=== PATIENT | male | born 1935 | race Caucasian/White ===

== ENCOUNTER → 2023-03-18 10:22 | Outpatient (CLI) | payer MEDICARE, OTHER, SELFPAY | PROVIDERS: Visit Provider Nurse Practitioner Family | DX: T14.8XXA Other injury of unspecified body region, initial encounter (principal) | CPT/HCPCS: 87070; 87205 ==

== ENCOUNTER → 2023-08-10 12:12 | Outpatient (CLI) | payer MEDICARE, OTHER, SELFPAY ==
--- NOTE | 2023-08-10 | DI.MRI.S_ITS ---
PROCEDURE: MR LUMBAR SPINE WO CON INDICATIONS: LUMBAR RADICULOPATHY TECHNIQUE: Noncontrast sagittal T1 spin echo and T2 fast echo, sagittal STIR, and T2 fast spin echo through the lumbar spine. In cases with scoliosis, additional coronal T2 fast spin echo may be performed. COMPARISON: None. FINDINGS: Image quality: Excellent. Alignment and Curvature: Mild anterolisthesis of L4 on L5. Bone Marrow: Marrow is of normal overall signal. No acute vertebral body compression fractures. Spinal Cord: Conus medullaris terminates at the L1-L2 level. Visualized cord demonstrates normal signal and size. Paraspinous Soft Tissues: No paravertebral masses. Simple appearing bilateral renal cysts. T12-L1: Normal appearance. L1-L2: Disc desiccation and small right paracentral disc protrusion. No central canal or neural foraminal stenosis. L2-L3: Disc desiccation and minimal disc bulge. Facet arthropathy and thickening of ligamentum flavum. No significant central canal stenosis. Moderate left and mild right neural foraminal stenosis. L3-L4: Disc desiccation and mild diffuse disc bulge. Facet arthropathy and thickening of ligamentum flavum. Mild central canal stenosis. Severe bilateral neural foraminal stenosis. L4-L5: Disc desiccation and mild diffuse disc bulge. Facet arthropathy and thickening of ligamentum flavum. Mild central canal stenosis. Severe right and moderate to severe left neural foraminal stenosis. L5-S1: Disc desiccation. Mild diffuse disc bulge. Facet arthropathy. No central canal stenosis. Mild bilateral neural foraminal stenosis. IMPRESSION: 1. Multilevel degenerative changes of the lumbar spine as described above. 2. There is mild central canal stenosis at L3-L4 and L4-5. 3. Severe neural foraminal stenosis bilaterally at L3-L4 and on the right at L4-5. Moderate to severe left neural foraminal stenosis at L4-5. Dictated by: Db Dewey M.D. on 08/10/2023 at 14:50 Approved by: Db Dewey M.D. on 08/10/2023 at 14:55
== END ==
PROVIDERS: PCP Internal Medicine; Referring Provider Internal Medicine; Visit Provider Internal Medicine
DX: M47.26 Other spondylosis with radiculopathy, lumbar region (principal); M47.27 Other spondylosis with radiculopathy, lumbosacral region; M48.061 Spinal stenosis, lumbar region without neurogenic claudication; M48.07 Spinal stenosis, lumbosacral region; M51.16 Intervertebral disc disorders with radiculopathy, lumbar region; M51.17 Intervertebral disc disorders with radiculopathy, lumbosacral region
CPT/HCPCS: 72148